=== PATIENT | female | born 1960 | race Caucasian/White ===

== ENCOUNTER 2018-01-24 01:42 | Observation (INO) | payer MEDICARE, OTHER ==
[~2018-01-24] VITALS: Ht 170.2 cm; Wt 87.8 kg
[~2018-01-24 01:42] MED LIST: BENTYL20 MG PO; BUSPIRONE HCL10 MG PO; BUSPIRONE HCL15 MG PO; CELEBREX200 MG PO; CITALOPRAM HBR10 MG PO; DIAZEPAM5 MG PO; GABAPENTIN400 MG PO; HYDROCHLOROTHIA25 MG PO; HYDROCODON-ACE1 EAC9 PO; LEFLUNOMIDE20 MG PO; LOSARTAN POTASS50 MG PO; LOSARTAN-HCTZ1 EACH PO; MAXALT10 MG SL; MELATONIN10 M1 PO; MELOXICAM15 MG PO; NEXIUM40 MG PO; ONDANSETRON HCL4 MG PO; OXYCODONE HCL15 MG PO; PANTOPRAZOLE SO40 MG PO; PREDNISONE5 MG PO; PREVALITE PACKET4 GM; PROMETHAZINE12.5 M1 PO; SAVELLA100 MG PO; SAVELLA50 MG PO; SERTRALINE HCL100 MG PO; SUCRALFATE1 G/10 ML PO; TRAMADOL HCL E200 MG PO; VICODIN 5-5001 EACH PO; Z EFFEXOR; Z.0.ULTRAM 50MG50 MG; Z.0.VALIUM2 MG; [UNRECOGNIZED DRUG - OTHER]
[2018-01-24] MEDS ORDERED: ONDANSETRON HCL INJ 2 MG/ML VIAL IV STA (02:21)
[2018-01-24] MEDS ORDERED: NITROGLYCERIN 2% OINT 1 GM PKT TOP ONE (02:30)
[2018-01-24] MEDS ORDERED: MORPHINE SULFATE 5 MG/ML VIAL IV ONE (02:30)
[2018-01-24] MEDS ORDERED: ASPIRIN 81 MG CHEW TAB PO ONE (02:30)
--- NOTE | 2018-01-24 02:40 | Diagnostic Imaging Report ---
EXAMINATION: CXR 2 VIEW - HOPD INDICATION: Mid chest pain COMPARISON: Chest radiograph 10/05/2016 FINDINGS: PA and lateral views TUBES and LINES: None. LUNGS: Lungs are well inflated. Lungs are clear. There is no evidence of pneumonia or pulmonary edema. PLEURA: No pleural effusion or pneumothorax. HEART AND MEDIASTINUM: The cardiomediastinal silhouette is unremarkable. BONES AND SOFT TISSUES: No acute osseous lesion. Soft tissues are unremarkable. UPPER ABDOMEN: No free air under the diaphragm. IMPRESSION: No acute thoracic abnormality. Signed by: DR. Jesus Manuel Fishman MD on 01/24/2018 2:36 AM
--- OUTSIDE RECORDS SUMMARY | 2018-01-24 03:19 | XMS REPORT ---
Author [facility] Address Unknown Phone Unavailable Care Team Providers Care Detacher Name Role Phone Valerie IBARRA Unavailable Unavailable Problems This patient has no known problems. Allergies, Adverse Reactions, Alerts This patient has no known allergies or adverse reactions. Medications This patient has no known medications. Results Test Description Test Time Test Comments Text Results Atomic Results Result Comments CXR 2 VIEW - HOPD 2018-01-24 02:34:00 [place] [address] Patient Name: TISH MARTE MR #: [id number] : 1960 Age/Sex: 57/F Req #: [id number] Adm Physician: Ordered by: SILVER IBARRA MD Report #: [id number] Location: [facility] Room/Bed: Procedure: [id number] HOPD/CXR 2 VIEW - HOPD Exam Date: 01/24/18 Exam Time: 0200 REPORT STATUS: Signed EXAMINATION: CXR 2 VIEW - HOPD INDICATION: Mid chest pain COMPARISON: Chest radiograph 10/05/2016 FINDINGS: PA and lateral views TUBES and LINES: None. LUNGS: Lungs are well inflated. Lungs are clear. There is no evidence of pneumonia or pulmonary edema. PLEURA: No pleural effusion or pneumothorax. HEART AND MEDIASTINUM: The cardiomediastinal silhouette is unremarkable. BONES AND SOFT TISSUES: No acute osseous lesion. Soft tissues are unremarkable. UPPER ABDOMEN: No free air under the diaphragm. IMPRESSION: No acute thoracic abnormality. Signed by: DR. Jesus Manuel Harper MD on 01/24/2018 2:36 AM Dictated By: JESUS MANUEL HARPER MD 5 Transcribed By: DELL on 01/24/18235 COPY TO: SILVER IBARRA MD
[2018-01-24] MEDS ORDERED: MORPHINE SULFATE INJ 4 MG/ML INJ IV PRN (03:30)
[2018-01-24 04:16] VITALS: BP 110/61
[2018-01-24] MEDS: MORPHINE SULFATE 2 MG/ML SYR IV PRN (04:31)
[2018-01-24] MEDS: NITROGLYCERIN 2% OINT 1 GM PKT TOP SCH ×3 (06:11→17:00)
[2018-01-24 07:47] VITALS: BP 99/57
[2018-01-24 07:48] VITALS: BP 99/57
[2018-01-24] MEDS ORDERED: DIAZEPAM 5 MG TAB PO PRN (08:00)
[2018-01-24] MEDS ORDERED: DICYCLOMINE HCL 20 MG TAB PO PRN (08:00)
[2018-01-24] MEDS ORDERED: PANTOPRAZOLE 40 MG 10ML VIAL IV SCH (09:00)
[2018-01-24] MEDS: BUSPIRONE HCL 10 MG TABLET PO SCH ×2 (09:38→17:00)
[2018-01-24] MEDS: ASPIRIN 81 MG ENTERIC COATED PO SCH (09:38)
[2018-01-24] MEDS: SERTRALINE HCL 100 MG TAB PO SCH ×2 (09:38→17:00)
[2018-01-24] MEDS: SUCRALFATE 1 GM TAB PO SCH ×4 (09:38→20:54)
[2018-01-24] MEDS: KETOROLAC TROMETHAMINE 30 MG/ML VIAL IV PRN ×3 (09:38→17:50)
[2018-01-24] MEDS: PANTOPRAZOL 40MG/SOD CHL 0.9% 50 ML IV SCH ×3 (09:47→20:54)
[2018-01-24 10:43] LABS: CREATINE KINASE 96 IU/L (29-168)
[2018-01-24 11:29] VITALS: BP 96/49
--- NOTE | 2018-01-24 11:40 | History and Physical ---
HISTORY OF PRESENTING ILLNESS: This is a 57-year-old lady with a history of fibromyalgia, history of depression, history of colitis, IBS, and rheumatoid arthritis was in usual state of health until one day prior to admission the patient had chest pain which is tight in nature and is more lying down, not exertional and the patient came into the emergency room and was admitted for rule out acute coronary syndrome. PAST MEDICAL HISTORY: History of fibromyalgia, history of hypertension, history of chronic pain syndrome, history of depression, history of reflux esophagitis, and history of irritable bowel syndrome and colitis. MEDICATIONS: Patient's medicine she takes at home are buspirone 20 mg twice a day, daily, diazepam 10 mg b.i.d., dicyclomine 20 mg t.i.d., gabapentin 400 mg 3 times a day, leflunomide 20 mg daily, losartan and hydrochlorothiazide 1 tab daily, oxycodone 15 mg q.6 hours p.r.n., pantoprazole 40 mg daily, promethazine 12.5 mg, rizatriptan 10 mg for migraines, sertraline 100 mg twice a day and Carafate 1 g q a.c. and h.s. also daily. PAST SURGICAL HISTORY: Includes history of appendectomy, history of cholecystectomy, hysterectomy, and low back surgery. FAMILY HISTORY: Father dying with the MVA and otherwise family history is unknown. REVIEW OF SYSTEMS: Positive for chest pain. No shortness of breath. Positive for nausea. No vomiting. No diarrhea. No constipation. No rectal bleeding. No hematochezia. No hematemesis. PHYSICAL EXAMINATION VITAL SIGNS: Temperature is normal, blood pressure is 153/72, pulse of 68, and respirations of 16. HEENT: Normocephalic, atraumatic. Pupils are reactive to light and accommodation. CVS: S1 and S2 normal. Regular rate and rhythm. ABDOMEN: Tender in the epigastrium. EXTREMITIES: No, clubbing, no cyanosis, and no edema. LABORATORY VALUES: White count 10.6 with a left shift otherwise normal. Chemistry is normal. ASSESSMENT AND PLAN: Gastritis. We will continue to monitor the patient and consult a cardiology opinion. Echocardiogram was done and we will start the patient on some IV Protonix 40 mg right now. Hold back on the pain medications. We will give some Toradol 60 mg in view of both gastritis and also her low blood pressure being here today. In home medicines, we are going to restrict her pain medicines right now and also blood pressure medicine will be on hold as well as her gastric medications. We are going to restart the Carafate and put her on IV Protonix. Further recommendation per clinical course. We will continue to monitor the patient along with the cardiology and possible discharge when all tests come back normal. Job#: [id number] MALU
[2018-01-24] MEDS: LOSARTAN POTASSIUM 25 MG TAB PO SCH (14:40)
[2018-01-24 15:42] VITALS: BP 97/51
--- NOTE | 2018-01-24 16:25 | Consultation ---
DATE OF CONSULTATION: January 24, 2018 REASON FOR CONSULTATION: Chest pain. HISTORY OF PRESENT ILLNESS: This is a 57-year-old female with history of fibromyalgia, depression, colitis, IBS, rheumatoid arthritis, GERD, degenerative joint disease. The patient presents to outline ER with complaints of chest pain, shortness of breath, was transferred to [facility] for further evaluation. Cardiology was consulted to evaluate patient. Patient is seen in room. Reports he has been having chest pain since yesterday afternoon, pressure tightness in the substernal regions radiates to her jaw, worse with lying position. Also reports for the past several days has been progressively getting short of breath where she cannot go to restroom because she is very short of breath, tired, and fatigued. Currently, she stats chest pain has resolved, feels slightly better after Toradol. Enzymes negative x2 thus far. PAST MEDICAL HISTORY: Fibromyalgia, depression, colitis, IBS, rheumatoid arthritis, GERD, degenerative joint disease. FAMILY HISTORY: Unknown. SOCIAL HISTORY: She is , disabled. She denies any alcohol use. She reports she smokes about a pack a week for at least 20 years intermittently. PAST SURGICAL HISTORY: Appendectomy, cholecystectomy, hysterectomy. HOME MEDICATIONS 1. BuSpar 20 mg once a day. 2. Prevalite package 4 gram once day. 3. Diazepam 10 mg b.i.d. p.r.n. 4. Bentyl 20 mg p.o. t.i.d. p.r.n. 5. Gabapentin 400 mg t.i.d. 6. Losartan/hydrochlorothiazide 50/12.5 once a day. 7. Protonix 40 mg once a day. 8. Phenergan 12.5 q.6 p.r.n. 9. Sertraline 100 mg b.i.d. 10. Carafate at 1 gram p.o with meals. ALLERGIES: NO KNOWN ALLERGIES. REVIEW OF SYSTEMS GENERAL: Denies any weight changes. Positive for fatigue and weakness. Denies any fevers, chills, night sweats. SKIN: No rashes. No sores. HEENT: Denies any headaches, any vision changes. Positive for nausea. Denies any vomiting. Denies any blurred vision, double vision, sneezing, itching, allergies, epistaxis. Denies any sore throat, hoarseness, swollen neck. CARDIAC: Positive for chest pain. Positive for dyspnea on exertion. Denies any orthopnea or any PND and lower extremity edema. RESPIRATORY: Positive for shortness of breath. No wheezing. No coughing. No hemoptysis. GI: Good appetite. Positive for dysphagia. Denies any constipation. Positive for diarrhea for the past 2 weeks and was supposed to see GI physician. URINARY: Positive for frequency and urgency. Reports history of hematuria in the past month, was treated for UTI. VASCULAR: Denies any lower extremity edema or claudication. MUSCULOSKELETAL: Positive for muscle weakness. Positive for joint pains, back pains. NEUROLOGIC: Positive for lower extremity tingling. Denies any paralysis, fainting, blackouts seizures. HEMATOLOGY: Denies any anemia or bruising. ENDOCRINE: Denies any heat or cold intolerance, polyuria, polydipsia, polyphagia. PHYSICAL EXAM VITAL SIGNS: Height 6 feet 7 inches, weight 225 pounds, BMI 35.7. Vital signs, current temperature 98.4, pulse 67, respiratory rate 19, blood pressure 99/57, pulse ox 96% on 2 liters nasal cannula. GENERAL: She appears stated age, reliable informant, apparently no acute distress. SKIN: No rashes or bruises. HEENT: Normocephalic. Pupils are equal and reactive. Extraocular muscle intact. Trachea midline. Oral mucosa pink. No JVD. No thyromegaly. HEART: Regular rate and rhythm. No murmurs, no clicks. LUNGS: Bilateral breath sounds clear to auscultation. ABDOMEN: Soft, nontender, nondistended. No organomegaly noted. MUSCULOSKELETAL: Muscle strength equal bilaterally and no lower extremity swelling. Has +2 bilateral radial pulses, +1 DP and PT and bilateral lower extremity pulses. NEUROLOGIC: Cranial nerves II through XII seems intact. LABS: Sodium 143, potassium 4.1, chloride 103, glucose 125, BUN 12, creatinine 1.1. Initial first troponin less than 0.05 and repeat less than 0.001. White count 10, hemoglobin 14, hematocrit 46, platelets 225. X-ray showing no acute abnormalities. EKG, normal sinus rhythm. ASSESSMENT 1. Chest pain. 2. Hypertension. 3. Tobacco use. 4. Gastroesophageal reflux disease. 5. Fibromyalgia. 6. Degenerative joint disease. PLAN 1. Patient presents with mixed chest pain symptoms. Will cycle enzymes and plan for stress test in the morning. 2. Echo has been ordered or has been reviewed by cardiology attending. 3. Will check lipid panel and TSH. 4. Continue tele monitor for now. 5. Further recommendations as clinical course. Thank you very much for this consult. Seen and examined Agree with note Will schedule stress test Dictated by: Carlos Thomas NP Job#: [id number] MALU SHANNON
[2018-01-24 18:45] LABS: CREATINE KINASE 85 IU/L (29-168)
[2018-01-24 20:00] VITALS: BP 107/55
[2018-01-25] VITALS (7 sets, daily range): BP systolic 105–132; BP diastolic 56–62
[2018-01-25] MEDS: NITROGLYCERIN 2% OINT 1 GM PKT TOP SCH ×2 (00:21→06:00)
[2018-01-25] MEDS: PANTOPRAZOL 40MG/SOD CHL 0.9% 50 ML IV SCH ×5 (02:11→23:38)
[2018-01-25] MEDS: ONDANSETRON HCL INJ 2 MG/ML VIAL IV PRN ×2 (02:39→07:55)
[2018-01-25] MEDS: MORPHINE SULFATE 2 MG/ML SYR IV PRN ×6 (02:39→23:56)
[2018-01-25 05:09] LABS: BASOPHILS # (AUTO) 0.1 (0.0-0.1); BASOPHILS % 0.5 % (0.0-1.0); EOSINOPHILS # (AUTO) 0.3 (0.0-0.4); EOSINOPHILS % 2.9 % (0.0-6.0); HEMOGLOBIN 12.8 g/dL (12.0-16.0); LYMPHOCYTES # (AUTO) 2.6 (1.0-3.2); LYMPHOCYTES % 25.9 % (18.0-39.1); MEAN CORPUSCULAR HEMOGLOBIN 30.3 pg (28-32); MEAN CORPUSCULAR HGB CONC 32.8 g/dL (31-35); MEAN CORPUSCULAR VOLUME 92.2 fL (81-99); MONOCYTES # (AUTO) 0.6 (0.2-0.8); MONOCYTES % 5.6 % (4.4-11.3); NEUTROPHILS # (AUTO) 6.5 (2.1-6.9); NEUTROPHILS % 64.6 % (38.7-80.0); PLATELET COUNT 210 x10e3/uL (140-360); RED BLOOD COUNT 4.23 x10e6/uL (3.6-5.1); RED CELL DISTRIBUTION WIDTH 14.1 % (11.7-14.4)
[2018-01-25 05:39] LABS: ANION GAP 11.2 mmol/L (8-16); CALCIUM 8.8 mg/dL (8.4-10.2); CREATININE, SERUM 0.95 mg/dL (0.57-1.11); POTASSIUM 4.2 mmol/L (3.5-5.1)
[2018-01-25] MEDS: KETOROLAC TROMETHAMINE 30 MG/ML VIAL IV PRN ×2 (05:51→14:00)
[2018-01-25 06:06] LABS: CHOL/HDL RATIO 5.8 (3.0-3.6)
--- NOTE | 2018-01-25 07:13 | Progress Note ---
DATE: Patient is here for chest pain. Patient still complains of chest pain, evening. Has been on Protonix drip for possible reflux esophagitis and gastritis. Patient's pain was better. Cardiology has seen the patient. She is scheduled for a stress test today. Echocardiogram preliminary shows EF of 45%-50%. OBJECTIVE/EXAMINATION VITAL SIGNS: Patient's temperature is 97.2, blood pressure is 127/59, pulse is 72, respirations of 18, pulse oximeter of 94%. HEENT: Normocephalic, atraumatic. Pupils reactive to light and accommodation. CVS: S1, S2 normal. Regular rate, rhythm. ABDOMEN: Tender in the epigastric area. No clubbing, no cyanosis, and no edema. LABORATORY VALUES: The patient's white count is 10.11. Chemistry: Sodium of 135, BUN and creatinine 11.2 and 22, and glucose is 23. Patient's LDL is 139, total cholesterol of 238, and triglycerides of 291. ASSESSMENT 1. Chest pain. Rule out acute coronary syndrome. 2. Reflux esophagitis and gastritis. Continue Protonix. 3. Irritable bowel syndrome. 4. Chronic pain syndrome. Continue on pain medicine. Once the stress test is normal, the patient can be going home. Further recommendation per clinical course, and I will follow up with cardiology. Job#: [id number] CQ
[2018-01-25] MEDS: SUCRALFATE 1 GM TAB PO SCH ×4 (07:50→21:04)
[2018-01-25] MEDS: LOSARTAN POTASSIUM 25 MG TAB PO SCH (09:00)
[2018-01-25] MEDS: HYDROCHLOROTHIAZIDE 25 MG TAB PO SCH (09:00)
[2018-01-25] MEDS ORDERED: REGADENOSON 0.4 MG/5 ML SYR IV ONE (10:27)
[2018-01-25] MEDS: SERTRALINE HCL 100 MG TAB PO SCH ×2 (12:22→16:30)
[2018-01-25] MEDS: BUSPIRONE HCL 10 MG TABLET PO SCH ×2 (12:22→16:30)
[2018-01-25] MEDS: ASPIRIN 81 MG ENTERIC COATED PO SCH (12:22)
[2018-01-26] VITALS: BP 125/62
[2018-01-26] MEDS: MORPHINE SULFATE 2 MG/ML SYR IV PRN ×8 (02:58→23:14)
[2018-01-26 04:00] VITALS: BP 124/70
[2018-01-26] MEDS: PANTOPRAZOL 40MG/SOD CHL 0.9% 50 ML IV SCH ×5 (05:17→22:37)
--- NOTE | 2018-01-26 07:18 | Progress Note ---
DATE: The patient is admitted for chest pain. Currently, she is chest pain free. However, the pain she has is epigastric pain, especially after eating. The patient had food after the stress test, and the patient's pain was 8/10 in intensity, and was more with eating. The patient was kept back for intractable pain. Was started on pain medication, and will continue with that. Also, consult with Dr. Calixto Chamorro was done for upper GI and EGD evaluation. The patient is to have EGD today. Otherwise, stress test was negative. MEDICATIONS: As per medicine sheet. She is currently on pantoprazole drip. PHYSICAL EXAMINATION GENERAL: Alert and oriented times 3. LUNGS: Clear to auscultation. HEENT: Normocephalic and atraumatic. Anicteric. NECK: No JVD present. CV: S1 and S2 normal. ABDOMEN: Tender in the epigastrium. EXTREMITIES: No clubbing. No cyanosis. No edema. NEUROLOGICAL: Normal and stable. The patient's BUN and creatinine yesterday was 22 and 0.95. Hemoglobin is stable at 12.9 and 39. Stress test negative. ASSESSMENT 1. Chest pain: Ruled out acute coronary syndrome. Negative stress test. 2. Epigastric pain, probably gastrointestinal related: Peptic ulcer disease and/or gastritis. PLAN: Continue with the IV Protonix. EGD is to be done by Dr. Chamorro today. Further recommendations per clinical course. The patient can go home if the EGD is negative, and can be sent home on Carafate. Job#: [id number] PAXTON
[2018-01-26] MEDS: SUCRALFATE 1 GM TAB PO SCH ×4 (07:30→20:11)
[2018-01-26 08:20] VITALS: BP 151/67
[2018-01-26] MEDS: HYDROCHLOROTHIAZIDE 25 MG TAB PO SCH (09:00)
[2018-01-26] MEDS: BUSPIRONE HCL 10 MG TABLET PO SCH ×2 (09:00→16:34)
[2018-01-26] MEDS: SERTRALINE HCL 100 MG TAB PO SCH ×2 (09:00→16:34)
[2018-01-26] MEDS: LOSARTAN POTASSIUM 25 MG TAB PO SCH (09:00)
[2018-01-26] MEDS: ASPIRIN 81 MG ENTERIC COATED PO SCH (09:00)
[2018-01-26 11:37] LABS: BASOPHILS # (AUTO) 0.1 (0.0-0.1); BASOPHILS % 0.6 % (0.0-1.0); EOSINOPHILS # (AUTO) 0.2 (0.0-0.4); EOSINOPHILS % 2.7 % (0.0-6.0); HEMATOCRIT 39.3 % (34.2-44.1); HEMOGLOBIN 13.2 g/dL (12.0-16.0); LYMPHOCYTES % 12.3 % (18.0-39.1); MEAN CORPUSCULAR HEMOGLOBIN 30.6 pg (28-32); MEAN CORPUSCULAR HGB CONC 33.6 g/dL (31-35); MEAN CORPUSCULAR VOLUME 91.2 fL (81-99); MONOCYTES # (AUTO) 0.4 (0.2-0.8); NEUTROPHILS # (AUTO) 6.2 (2.1-6.9); NEUTROPHILS % 79.1 % (38.7-80.0); PLATELET COUNT 217 x10e3/uL (140-360); RED BLOOD COUNT 4.31 x10e6/uL (3.6-5.1); RED CELL DISTRIBUTION WIDTH 13.7 % (11.7-14.4)
[2018-01-26 11:57] LABS: ANION GAP 13.2 mmol/L (8-16); BLOOD UREA NITROGEN 16 mg/dL (7-26); BUN/CREATININE RATIO 20 (6-25); CALCIUM 8.3 mg/dL (8.4-10.2); CARBON DIOXIDE 26 mmol/L (22-29); CHLORIDE 102 mmol/L (98-107); CREATININE, SERUM 0.82 mg/dL (0.57-1.11); EST GLOMERULAR FILTRATION RATE > 60 ML/MIN (60-); GLUCOSE 101 mg/dL (74-118); POTASSIUM 4.2 mmol/L (3.5-5.1); SODIUM 137 mmol/L (136-145)
[2018-01-26 12:17] VITALS: BP 133/65
[2018-01-26] MEDS ORDERED: DONNATAL/LIDOCAINE/MAALOX 30 ML SUSP PO NR (15:00)
[2018-01-26] MEDS ORDERED: FENTANYL CITRATE/PF 100MCG/2 ML INJ ONE ×2 (15:17→18:20)
--- NOTE | 2018-01-26 15:50 | Operative Report ---
DATE OF PROCEDURE: January 24, 2018 REFERRING PHYSICIAN: Dr. Justin Art PROCEDURE PERFORMED: Esophagogastroduodenoscopy with esophageal dilatation and biopsies. INDICATIONS FOR EGD: Dysphagia, odynophagia. MEDICATION: Patient was done under MAC. Please see anesthesiologist's note. PROCEDURE: With the patient in the left lateral decubitus position, the flexible fiberoptic Olympus gastroscope was introduced into the esophagus under direct visualization without any difficulty. The distal esophageal mucosa was diffusely ulcerated. A mild stricture was noted at the GE junction that was dilated to size 48-Burkin[place] Moyer. The scope was then advanced with ease into the stomach. Mucosa overlying the antrum and the body revealed some patchy erythema and mild to moderate edema, and biopsies were obtained and sent to stain for H. pylori. Pylorus was of normal contour and shape. It was intubated with ease, and the scope was advanced all the way to the 2nd portion of the duodenum. The scope was then withdrawn slowly. Mucosa overlying the proximal 2nd portion appeared to be within normal limits. Some patchy areas of erythema were noted in the duodenal bulb. The scope was then withdrawn back into the stomach and retroflexed. Mucosa overlying the fundus and cardia appeared to be within normal limits. The scope was then straightened out. It was subsequently withdrawn. Patient tolerated the procedure well. IMPRESSION 1. Ulcerated distal esophagus. 2. Esophageal stricture at gastroesophageal junction dilated to size 48-Burkinan Moyer. 3. Small sliding hiatal hernia. 4. Gastritis, biopsied. Biopsies sent to stain for H. pylori. 5. Duodenitis, mild. PLAN: Follow up histology. Continue current therapy. Initiate full liquid diet. Job#: [id number] cc:JUSTIN ART MD
[2018-01-26 16:13] VITALS: BP 176/84
[2018-01-26] MEDS ORDERED: PROPOFOL IV EMULSION 10 MG/ML 20 ML VIAL ONE (17:50)
[2018-01-26] MEDS ORDERED: GLUCAGON FOR INJ 1 MG VIAL ONE (17:50)
[2018-01-26] MEDS ORDERED: MIDAZOLAM HCL 2 MG/2 ML VIAL ONE (18:20)
[2018-01-26 20:00] VITALS: BP 131/62
[2018-01-27] VITALS: BP 106/57
[2018-01-27] MEDS: MORPHINE SULFATE 2 MG/ML SYR IV PRN ×2 (02:42→05:49)
[2018-01-27] MEDS: PANTOPRAZOL 40MG/SOD CHL 0.9% 50 ML IV SCH (03:50)
[2018-01-27 04:00] VITALS: BP 122/68
--- NOTE | 2018-01-27 07:07 | Progress Note ---
DATE: This patient came in for chest pain. Stress test has been negative. Patient underwent an EGD yesterday and was found to have ulcer in the distal esophagus, and also, esophageal stricture at the GE junction. Also, the patient had a dilatation done for the stricture and also, additional findings of small hiatal hernia and gastritis and duodenitis. Biopsies were taken. Patient is currently pain free, feeling much better. PHYSICAL EXAMINATION VITALS: Temperature is 98.2, pulse was 73, blood pressure is 122/68, pulse oximetry 95%. HEENT: Normocephalic, atraumatic. Anicteric. Pupils react to light and accommodation. LUNGS: Clear to auscultation. CARDIAC: S1 and S2 normal. Regular rhythm. ABDOMEN: Slight tenderness in the epigastric area. EXTREMITIES: No clubbing, no cyanosis, no edema. LABORATORY VALUES: No new values. BUN and creatinine were normal yesterday and H and H was normal yesterday. ASSESSMENT 1. Gastritis, probably from nonsteroidal anti-inflammatory drugs intake. Plan is to give Protonix 40 mg twice a day. Also, send her home on Carafate 1 g q.a.c. nightly. Restart all of her home medications. Nonsteroidal anti-inflammatory drugs to be avoided for chest pain. 2. Stress was negative. 3. History of rheumatoid arthritis. Continue on biologicals. Avoid nonsteroidal anti-inflammatory drugs again. 4. Hypertension. Continue on her hydrochlorothiazide. 5. For the depression, will continue sertraline and diazepam as needed. For further information, look in the chart, and patient will be discharged today. Will be seen by her primary care physician and also, by Dr. Chamorro as an outpatient basis. Again, bland diet and avoidance of NSAID has been advocated. Job#: [id number] CQ
[2018-01-27 07:28] VITALS: BP 122/68
[2018-01-27 07:48] VITALS: BP 125/69
== END 2018-01-27 08:59 | disposition home or self-care (01) ==
LOC: FSED 01:42 → ERHOLD 03:16 → IMCU 04:00
PROVIDERS: ADMIT Family Medicine; ATTEND Family Medicine
DX: K29.70 Gastritis, unspecified, without bleeding (principal); R07.89 Other chest pain; M79.7 Fibromyalgia; M06.9 Rheumatoid arthritis, unspecified; I10 Essential (primary) hypertension; M19.90 Unspecified osteoarthritis, unspecified site; Z72.0 Tobacco use; K22.2 Esophageal obstruction; K44.9 Diaphragmatic hernia without obstruction or gangrene; K29.80 Duodenitis without bleeding; K22.10 Ulcer of esophagus without bleeding; K50.90 Crohn's disease, unspecified, without complications; F41.9 Anxiety disorder, unspecified; F32.9 Major depressive disorder, single episode, unspecified; G89.4 Chronic pain syndrome; K58.9 Irritable bowel syndrome, unspecified; K21.0 Gastro-esophageal reflux disease with esophagitis; E78.5 Hyperlipidemia, unspecified
CPT/HCPCS: 36415 ×3; 43239; 43249; 71046; 78452; 80048 ×2; 80053; 80061; 81003; 82550; 82553; 84443; 84484; 85025 ×3; 88305; 88312; 93005; 93306; 99284; A9502; G0378 ×4; J1610; J1885 ×2; J2250; J2270 ×5; J2405 ×2; J2704; J2785; 43450

== ENCOUNTER 2018-04-19 14:29 | Observation (INO) | payer MEDICARE, OTHER ==
[~2018-04-19] VITALS: Ht 167.6 cm; Wt 87.5 kg
[~2018-04-19 14:29] MED LIST changes: -PREVALITE PACKET4 GM; +PREVALITE PACKET4 GM PO
[2018-04-19] MEDS ORDERED: DONNATAL/LIDOCAINE/MAALOX 30 ML SUSP PO NR (15:43)
[2018-04-19 17:17] LABS: BASOPHILS # (AUTO) 0.1 (0.0-0.1); BASOPHILS % 0.7 % (0.0-1.0); EOSINOPHILS # (AUTO) 0.3 (0.0-0.4); EOSINOPHILS % 4.7 % (0.0-6.0); HEMATOCRIT 40.8 % (34.2-44.1); HEMOGLOBIN 13.1 g/dL (12.0-16.0); LYMPHOCYTES # (AUTO) 3.1 (1.0-3.2); LYMPHOCYTES % 43.1 % (18.0-39.1); MEAN CORPUSCULAR HEMOGLOBIN 29.5 pg (28-32); MEAN CORPUSCULAR HGB CONC 32.1 g/dL (31-35); MEAN CORPUSCULAR VOLUME 91.9 fL (81-99); MONOCYTES # (AUTO) 0.6 (0.2-0.8); MONOCYTES % 8.1 % (4.4-11.3); NEUTROPHILS # (AUTO) 3.1 (2.1-6.9); NEUTROPHILS % 43.1 % (38.7-80.0); PLATELET COUNT 246 x10e3/uL (140-360); RED BLOOD COUNT 4.44 x10e6/uL (3.6-5.1); RED CELL DISTRIBUTION WIDTH 14.5 % (11.7-14.4)
[2018-04-19 17:25] LABS: INR 0.81
[2018-04-19 17:26] LABS: PARTIAL THROMBOPLASTIN TIME 31.2 seconds (23.8-35.5)
[2018-04-19 17:33] LABS: BILIRUBIN,URINE NEGATIVE (NEGATIVE); CLARITY,URINE CLEAR (CLEAR); COLOR,URINE YELLOW (YELLOW); KETONES,URINE NEGATIVE (NEGATIVE); LEUKOCYTE ESTERASE ,URINE NEGATIVE (NEGATIVE); NITRITE,URINE NEGATIVE (NEGATIVE); PROTEIN,URINE DIPSTICK NEGATIVE (NEGATIVE); URINE UROBILINOGEN 0.2 mg/dL (0.2 - 1)
[2018-04-19 17:33] LABS: ALANINE AMINOTRANSFERASE 17 IU/L (0-55); ALBUMIN 3.9 g/dL (3.5-5.0); ALBUMIN/GLOBULIN RATIO 1.6 (0.8-2.0); ALKALINE PHOSPHATASE 80 IU/L (40-150); AMYLASE 28 U/L (25-125); ANION GAP 13.7 mmol/L (8-16); BLOOD UREA NITROGEN 19 mg/dL (7-26); BUN/CREATININE RATIO 19 (6-25); CALCIUM 9.4 mg/dL (8.4-10.2); CARBON DIOXIDE 27 mmol/L (22-29); CHLORIDE 100 mmol/L (98-107); CREATINE KINASE 158 IU/L (29-168); CREATININE, SERUM 1.01 mg/dL (0.57-1.11); EST GLOMERULAR FILTRATION RATE 56 ML/MIN (60-); GLUCOSE 85 mg/dL (74-118); LIPASE 14 U/L (8-78); POTASSIUM 3.7 mmol/L (3.5-5.1); SODIUM 137 mmol/L (136-145)
[2018-04-19 17:40] LABS: BACTERIA,URINE FEW /HPF; EPITHELIAL CELLS,URINE FEW /LPF; WBC,URINE (MAN) 0-5 /HPF (0-5)
--- NOTE | 2018-04-19 19:08 | Diagnostic Imaging Report ---
EXAMINATION: CHEST SINGLE (NOT PORTABLE) INDICATION: Chest pain ^chest pain ^[id number] ^1855 ^Y COMPARISON: 02/27/2011 FINDINGS: TUBES and LINES: None. LUNGS: Lungs are well inflated. Perihilar peribronchial hazy opacity could be due to bronchitis. There is no evidence of pneumonia or pulmonary edema. PLEURA: No pleural effusion or pneumothorax. HEART AND MEDIASTINUM: The cardiomediastinal silhouette is unremarkable. BONES AND SOFT TISSUES: No acute osseous lesion. Soft tissues are unremarkable. UPPER ABDOMEN: No free air under the diaphragm. IMPRESSION: Perihilar peribronchial hazy opacity could be due to bronchitis. Signed by: Dr. Tomas Chi M.D. on 04/19/2018 7:04 PM
[2018-04-19] MEDS ORDERED: SUCRALFATE1 GM PO (19:57)
[2018-04-19] MEDS ORDERED: PANTOPRAZOLE SO40 MG PO (19:59)
[2018-04-19] MEDS ORDERED: xeljanz PO (20:01)
[2018-04-19] MEDS: SODIUM CHLORIDE 0.9% 1000ML 1,000 ML IV SCH (20:43)
[2018-04-19] MEDS: MORPHINE SULFATE INJ 4 MG/ML INJ 1ML IV PRN (20:43)
[2018-04-19] MEDS: ONDANSETRON HCL INJ 2MG/ML 2ML 2 MG/ML VIAL IV PRN (20:43)
--- NOTE | 2018-04-20 01:00 | NUR ---
PT O2 SAT 93% ON RA. PT ENCOURAGED TO DEEP BREATHE. PT REQUESTING MORPHINE FOR PAIN. PAIN RATED 7/10. PT PLACED ON O2 2L NC PER O2 PROTOCOL. O2 SAT INCREASED TO 98-99%. MEDICATED PER ORDERS AT THIS TIME.
[2018-04-20] MEDS: MORPHINE SULFATE INJ 4 MG/ML INJ 1ML IV PRN ×5 (01:01→23:39)
[2018-04-20] MEDS: ONDANSETRON HCL INJ 2MG/ML 2ML 2 MG/ML VIAL IV PRN ×4 (01:01→23:39)
[2018-04-20] MEDS: SODIUM CHLORIDE 0.9% 1000ML 1,000 ML IV SCH ×2 (04:26→17:19)
[2018-04-20 05:46] LABS: ANION GAP 10.5 mmol/L (8-16); BLOOD UREA NITROGEN 12 mg/dL (7-26); BUN/CREATININE RATIO 16 (6-25); CARBON DIOXIDE 22 mmol/L (22-29); CHLORIDE 111 mmol/L (98-107); CREATININE, SERUM 0.73 mg/dL (0.57-1.11); EST GLOMERULAR FILTRATION RATE > 60 ML/MIN (60-); GLUCOSE 78 mg/dL (74-118); POTASSIUM 3.5 mmol/L (3.5-5.1); SODIUM 140 mmol/L (136-145)
[2018-04-20 05:52] LABS: CALCIUM 7.2 mg/dL (8.4-10.2)
[2018-04-20 06:25] LABS: BASOPHILS # (AUTO) 0.1 (0.0-0.1); EOSINOPHILS # (AUTO) 0.3 (0.0-0.4); EOSINOPHILS % 4.9 % (0.0-6.0); HEMATOCRIT 39.3 % (34.2-44.1); HEMOGLOBIN 12.2 g/dL (12.0-16.0); LYMPHOCYTES # (AUTO) 2.1 (1.0-3.2); LYMPHOCYTES % 39.7 % (18.0-39.1); MEAN CORPUSCULAR HEMOGLOBIN 29.7 pg (28-32); MEAN CORPUSCULAR VOLUME 95.6 fL (81-99); MONOCYTES # (AUTO) 0.5 (0.2-0.8); MONOCYTES % 8.6 % (4.4-11.3); NEUTROPHILS # (AUTO) 2.4 (2.1-6.9); NEUTROPHILS % 45.6 % (38.7-80.0); PLATELET COUNT 171 x10e3/uL (140-360); RED BLOOD COUNT 4.11 x10e6/uL (3.6-5.1); RED CELL DISTRIBUTION WIDTH 14.6 % (11.7-14.4)
--- NOTE | 2018-04-20 06:50 | NUR ---
RECEIVED REPORT FROM KADEN BRASHER.
--- NOTE | 2018-04-20 09:00 | NUR ---
Pt ambulatory to the RR. No distress is noted.
--- NOTE | 2018-04-20 12:00 | NUR ---
Ambulatory to RR. No distress.
--- NOTE | 2018-04-20 16:36 | Operative Report ---
DATE OF PROCEDURE: April 20, 2018 REFERRING PHYSICIAN: Dr. Roberto Marsh. PROCEDURE PERFORMED: Esophagogastroduodenoscopy with biopsy and esophageal dilatation. INDICATIONS FOR ESOPHAGOGASTRODUODENOSCOPY: Dysphagia, nausea and vomiting. MEDICATION: Patient was done under MAC. Please see anesthesiologist's note. PROCEDURE: With the patient in the left lateral decubitus position, the flexible fiberoptic Olympus gastroscope was introduced into the esophagus under direct visualization without any difficulty. There was some patchy erythema noted in the distal esophagus. There was a mild stricture noted at the GE junction, and that was dilated to size 54-Hong Konger Moyer. The scope was then advanced with ease into the stomach. Mucosa overlying the antrum and the body revealed some diffuse erythema and low-grade edema, and biopsies were obtained and sent to stain for H. pylori. Pylorus appeared to be of normal contour and shape, was intubated with ease, and the scope was advanced all the way to the 2nd portion of the duodenum. The scope was then withdrawn slowly, and mucosa overlying the proximal descending and the sigmoid colon revealed some patchy areas of intense erythema. The scope was then withdrawn back into the stomach and retroflexed. Mucosa overlying the fundus and the cardia appeared to be within normal limits. The scope was then straightened out. It was subsequently withdrawn. Patient tolerated the procedure well. IMPRESSION: 1. Distal esophagitis. 2. Esophageal stricture at gastroesophageal junction dilated to size 54-H[place] Konger Moyer. 3. Gastritis biopsied. Biopsies sent to stain for H. pylori. 4. Duodenitis, mild. PLAN: Follow up histology. Continue current therapy. Initiate full liquid diet. Job#: [id number] cc:ROBERTO MARSH MD
[2018-04-20] MEDS ORDERED: SODIUM CHLORIDE 0.9% 1000ML 1,000 ML ONE (17:14)
[2018-04-20] MEDS ORDERED: EPHEDRINE SULFATE INJ 50 MG/10 ML SYR ONE (17:25)
[2018-04-20] MEDS ORDERED: PROPOFOL IV EMULSION 10 MG/ML 50 ML VIAL ONE (17:25)
[2018-04-20] MEDS ORDERED: GLYCOPYRROLATE INJ 1MG/ 5 ML SYR ONE (17:25)
[2018-04-20] MEDS ORDERED: FENTANYL CITRATE/PF 100MCG/2 ML INJ ONE ×2 (17:46→18:34)
[2018-04-20] MEDS ORDERED: MIDAZOLAM HCL 2 MG/2 ML VIAL ONE (18:34)
[2018-04-20] MEDS ORDERED: HYDROMORPHONE 2MG/ML 2 MG/ML ML ONE (18:47)
[2018-04-20] MEDS ORDERED: MORPHINE SULFATE INJ 4 MG/ML INJ 1ML ONE ×2 (19:22→20:17)
--- NOTE | 2018-04-20 22:01 | NUR ---
PT ARRIVED ON THE UNIT FROM VIA STRETCHER AT 2201. PT IS A&OX3. PT ON 2L OF O2. PT ORIENTED TO THE ROOM, BED IN LOWEST POSITION, LOCKED, BED ALARM ON, AND CALL LIGHT WITHIN REACH. ADMISSION AND HEAD TO TOE ASSESSMENT COMPLETE. WILL CONTINUE TO MONITOR.
[2018-04-20 22:02] VITALS: BP 121/57
--- NOTE | 2018-04-20 23:16 | NUR ---
PER DR Aretha BRAUN CHANGE PT DIET TO GI SOFT. WILL CONTINUE TO MONITOR.
[2018-04-21] VITALS (8 sets, daily range): BP systolic 97–121; BP diastolic 49–64
[2018-04-21] MEDS: SODIUM CHLORIDE 0.9% 1000ML 1,000 ML IV SCH ×3 (01:15→17:56)
[2018-04-21] MEDS: ONDANSETRON HCL INJ 2MG/ML 2ML 2 MG/ML VIAL IV PRN ×4 (03:56→17:04)
[2018-04-21] MEDS: MORPHINE SULFATE INJ 4 MG/ML INJ 1ML IV PRN ×4 (03:56→17:04)
--- NOTE | 2018-04-21 08:10 | NUR ---
Pt received resting in bed. Pt oriented to staff and surroundings. All meds given as ordered. Call durham within reach. Emotional support given. Will monitor
[2018-04-21] MEDS ORDERED: NORCO 7.5-3251 EACH PO (18:01)
--- NOTE | 2018-04-21 18:18 | NUR ---
Pt given discharge instructions regarding meds, diet, activities, and follow up with PCP & GI. Pt and verbalized understanding of teaching. Leaving floor via wheelchair to 's car
== END 2018-04-21 18:26 | disposition home or self-care (01) ==
LOC: ER 14:29 → PACU V 20:06 → UNDOADMOB 20:40 → ERHOLD 20:40 → OR 04-20 14:28 → MED/SURG3 04-20 22:10
PROVIDERS: ADMIT Internal Medicine; ATTEND Internal Medicine
DX: K22.2 Esophageal obstruction (principal); R07.89 Other chest pain; K30 Functional dyspepsia; K20.9 Esophagitis, unspecified; K29.70 Gastritis, unspecified, without bleeding; K29.80 Duodenitis without bleeding; F41.9 Anxiety disorder, unspecified; M79.7 Fibromyalgia; I10 Essential (primary) hypertension; M06.9 Rheumatoid arthritis, unspecified; I25.10 Atherosclerotic heart disease of native coronary artery without angina pectoris
CPT/HCPCS: 36415 ×2; 43239; 43450; 71045; 80048; 80053; 81001; 82150; 82550; 82553; 83690; 84484; 85025 ×2; 85610; 85730; 88305; 88312; 93005; 96374; 99284; G0378 ×3; J1170; J2250; J2270 ×3; J2405 ×3; J2704; J3490; J7030 ×3; 43235

== ENCOUNTER 2018-04-28 17:47 | Emergency (ER) | payer MEDICARE, OTHER ==
[~2018-04-28] VITALS: Ht 167.6 cm; Wt 81.6 kg
[~2018-04-28 17:47] MED LIST changes: +NORCO 7.5-3251 EACH PO; +SUCRALFATE1 GM PO; +xeljanz PO
[2018-04-28] MEDS ORDERED: MORPHINE SULFATE 2 MG/ML SYR 1ML IV STA (18:32)
[2018-04-28] MEDS ORDERED: ONDANSETRON HCL INJ 2MG/ML 2ML 2 MG/ML VIAL IV STA (18:32)
[2018-04-28] MEDS ORDERED: IOPAMIDOL 300MG/ML 100 ML INFUS..BTL IV ONE (19:45)
--- NOTE | 2018-04-28 19:52 | Diagnostic Imaging Report ---
EXAM: CT CHEST WITH CONTRAST-HOPD DATE: 04/28/2018 12:00 AM INDICATION: Vomiting, chest pain COMPARISON: CT abdomen 09/30/2016 TECHNIQUE: Multidetector CT scanning of the chest was performed. Coronal and sagittal multiplanar reformations were obtained. CT low dose techniques were utilized, as applicable. IV Contrast: 100 ml Isovue 370/300 FINDINGS: LUNGS AND PLEURA: Minimal paraseptal emphysema. Nonspecific 3 mm right lung nodule on image 57. No consolidation or edema. No effusions or pneumothorax. HEART, MEDIASTINUM, VESSELS: Borderline cardiomegaly. Incidental right pericardial cyst . No adenopathy. The aorta and main pulmonary artery measure 3.3 and 2.6 cm respectively. No evidence of acute pulmonary artery embolism. UPPER ABDOMEN: Mild diffuse lower esophageal wall thickening. Innumerable low-density lesions again seen throughout the liver, likely cysts. MUSCULOSKELETAL: Likely healing upper sternal fracture. No hematoma. IMPRESSION: 1. Lower esophageal wall thickening which can be seen with esophagitis. Otherwise no acute abnormality. 2. Healing upper sternal fracture. Signed by: Dr Alexandra Dan MD on 04/28/2018 7:49 PM
[2018-04-28 20:07] VITALS: BP 138/72
== END 2018-04-28 20:08 | disposition home or self-care (01) ==
LOC: FSED 17:47
DX: R07.89 Other chest pain (principal); K21.0 Gastro-esophageal reflux disease with esophagitis; I10 Essential (primary) hypertension; D64.9 Anemia, unspecified; M06.9 Rheumatoid arthritis, unspecified; I25.2 Old myocardial infarction
CPT/HCPCS: 71260; 99283; J2270; J2405; Q9967

== ENCOUNTER → 2018-06-04 | Outpatient (CLI) | payer MEDICARE ==
--- NOTE | 2018-06-04 15:07 | Diagnostic Imaging Report ---
MODIFIED BARIUM SWALLOW Reason for examination: Dysphagia Comparison: None DISCUSSION: This examination was conducted in conjunction with speech pathologist. Patient was given, by mouth, numerous consistencies of barium. Fluoroscopy was obtained. Fluoro Time: 0.7 minutes DAP: 11.23 mGy*cm IMPRESSION: No evidence of aspiration or penetration. Functional oropharyngeal swallow. Gastroesophageal reflux and increased esophageal pain during swallowing. Please see speech pathology report for detailed description and recommendations. Signed by: Dr. Tomas Chi M.D. on 06/04/2018 3:03 PM
== END ==
LOC: DX 10:45
PROVIDERS: ATTEND Internal Medicine Gastroenterology
DX: R13.14 Dysphagia, pharyngoesophageal phase (principal)
CPT/HCPCS: 74230

== ENCOUNTER 2018-07-10 12:12 | Emergency (ER) | payer MEDICARE ==
[~2018-07-10] VITALS: Ht 167.6 cm; Wt 79.4 kg
[2018-07-10] MEDS ORDERED: DIATRIZOATE MEGL/DIATRIZOA SOD 30 ML BTL PO ONE (13:05)
[2018-07-10] MEDS: SODIUM CHLORIDE 0.9% 1000ML 1,000 ML IV STA (13:20)
[2018-07-10] MEDS: ONDANSETRON HCL INJ 2MG/ML 2ML 2 MG/ML VIAL IV ONE (13:25)
[2018-07-10] MEDS: DICYCLOMINE HCL 20 MG/2 ML VIAL IM ONE (13:28)
[2018-07-10 13:35] LABS: BASOPHILS # (AUTO) 0.1 (0.0-0.1); BASOPHILS % 0.3 % (0.0-1.0); EOSINOPHILS % 0.1 % (0.0-6.0); HEMATOCRIT 42.9 % (34.2-44.1); HEMOGLOBIN 14.1 g/dL (12.0-16.0); LYMPHOCYTES % 7.2 % (18.0-39.1); MEAN CORPUSCULAR HEMOGLOBIN 29.7 pg (28-32); MEAN CORPUSCULAR HGB CONC 32.9 g/dL (31-35); MEAN CORPUSCULAR VOLUME 90.5 fL (81-99); MONOCYTES # (AUTO) 0.6 (0.2-0.8); MONOCYTES % 4.3 % (4.4-11.3); NEUTROPHILS # (AUTO) 12.7 (2.1-6.9); NEUTROPHILS % 87.4 % (38.7-80.0); PLATELET COUNT 184 x10e3/uL (140-360); RED BLOOD COUNT 4.74 x10e6/uL (3.6-5.1); RED CELL DISTRIBUTION WIDTH 14.3 % (11.7-14.4)
[2018-07-10 14:05] LABS: ALBUMIN 3.7 g/dL (3.5-5.0); ANION GAP 17.4 mmol/L (8-16); CALCIUM 9.1 mg/dL (8.4-10.2); CREATININE, SERUM 1.6 mg/dL (0.57-1.11); POTASSIUM 3.4 mmol/L (3.5-5.1)
[2018-07-10 15:40] LABS: BACTERIA,URINE MANY /HPF; BILIRUBIN,URINE NEGATIVE (NEGATIVE); CLARITY,URINE CLOUDY (CLEAR); COLOR,URINE YELLOW (YELLOW); EPITHELIAL CELLS,URINE FEW /LPF; KETONES,URINE NEGATIVE (NEGATIVE); LEUKOCYTE ESTERASE ,URINE TRACE (NEGATIVE); NITRITE,URINE NEGATIVE (NEGATIVE); PROTEIN,URINE DIPSTICK TRACE (NEGATIVE); URINE UROBILINOGEN 0.2 mg/dL (0.2 - 1)
[2018-07-10] MEDS ORDERED: POTASSIUM CHLORIDE 20 MEQ TAB CR PO ONE (16:00)
--- NOTE | 2018-07-10 16:03 | Diagnostic Imaging Report ---
EXAM: CT Abdomen and Pelvis WITHOUT contrast INDICATION: ^r/o divertic / sbo - hx chron's ^[id number] ^[id number] COMPARISON: CT chest 04/28/[address] abdomen and pelvis 10/05/2016 TECHNIQUE: Abdomen and pelvis were scanned utilizing a multidetector helical scanner from the lung base to the pubic symphysis without administration of IV contrast. Absence of intravenous contrast decreases sensitivity for detection of focal lesions and vascular pathology. Coronal and sagittal reformations were obtained. Routine protocol was performed. IV CONTRAST: None. ORAL CONTRAST: None RADIATION DOSE: Total DLP: 560.2 mGy*cm Estimated effective dose: (DLP x 0.015 x size factor) mSv COMPLICATIONS: None FINDINGS: LINES and TUBES: None. LOWER THORAX: Lung bases are clear. Persistent circumferential wall thickening of the distal esophagus with associated small hiatal hernia. HEPATOBILIARY: Mild hepatomegaly. The liver measures 17.6 cm in length in the craniocaudal dimension. Mild diffuse low-attenuation of the liver parenchyma may reflect early hepatic steatosis. Stable low-attenuation a few hepatic cysts, measuring up to 2.4 cm. No new focal hepatic lesions. No biliary ductal dilation. GALLBLADDER: Cholecystectomy. SPLEEN: Mild splenomegaly. The spleen measures 12.5 cm in length in the intracranial colon dimension. PANCREAS: No focal masses or ductal dilatation. ADRENALS: No adrenal nodules KIDNEYS/URETERS: No hydronephrosis. No cystic or solid mass lesions. No stones. GI TRACT: Interval development of diffuse nodular wall thickening of the distal ascending colon, cecum and terminal ileum with surrounding fat stranding suggestive of acute colitis and an terminal ileum ileitis. Unchanged lipoma in the cecum. Appendectomy. Scattered diverticulosis of the sigmoid colon without diverticulitis. No bowel dilatation or obstruction. PELVIC ORGANS/BLADDER: Hysterectomy. LYMPH NODES: Few right lower quadrant subcentimeter lymph nodes, likely reactive. VESSELS: Unremarkable. PERITONEUM / RETROPERITONEUM: No free air or fluid. BONES: Severe degenerative changes from L1 to L4. Pars defect at L5-S1 with associated mild anterolisthesis of L5 over S1. SOFT TISSUES: Unremarkable. IMPRESSION: 1. Acute colitis and an terminal ileum ileitis. No perforation or abscess. 2. Colonic diverticulosis without diverticulitis. Signed by: Dr. Laurie George M.D. on 07/10/2018 3:59 PM
== END 2018-07-10 17:00 | disposition left against medical advice (07) ==
LOC: ER 12:12
DX: R10.11 Right upper quadrant pain (principal); R10.31 Right lower quadrant pain; R10.33 Periumbilical pain; K52.9 Noninfective gastroenteritis and colitis, unspecified; K50.00 Crohn's disease of small intestine without complications; I10 Essential (primary) hypertension; I25.10 Atherosclerotic heart disease of native coronary artery without angina pectoris; M79.7 Fibromyalgia; I25.2 Old myocardial infarction
CPT/HCPCS: 36415; 74176; 80053; 81001; 85025; 87086; 87186; 96372; 96374; 99284; J0500; J2405; J7030

== ENCOUNTER 2021-06-05 12:56 | Inpatient (IN) | payer MEDICARE ==
[~2021-06-05] VITALS: Ht 167.6 cm; Wt 83.9 kg
[2021-06-05] MEDS ORDERED: ONDANSETRON HCL INJ 2MG/ML 2ML 2 MG/ML VIAL IV PRN ×3 (13:15→17:00)
[2021-06-05] MEDS ORDERED: Morphine 4mg Syringe 4 MG/ML INJ IV PRN ×2 (13:15→15:00)
[2021-06-05] MEDS ORDERED: ASPIRIN 81 MG CHEW TAB PO ONE ×2 (13:15→15:00)
[2021-06-05 13:23] LABS: BASOPHILS # (AUTO) 0.1 (0.0-0.1); BASOPHILS % 0.6 % (0.0-1.0); EOSINOPHILS # (AUTO) 0.4 (0.0-0.4); EOSINOPHILS % 4.6 % (0.0-6.0); HEMATOCRIT 43.4 % (34.2-44.1); HEMOGLOBIN 14.1 g/dL (12.0-16.0); LYMPHOCYTES # (AUTO) 2.2 (1.0-3.2); LYMPHOCYTES % 27.8 % (18.0-39.1); MEAN CORPUSCULAR HEMOGLOBIN 28.8 pg (28-32); MEAN CORPUSCULAR HGB CONC 32.5 g/dL (31-35); MEAN CORPUSCULAR VOLUME 88.8 fL (81-99); MONOCYTES # (AUTO) 0.5 (0.2-0.8); MONOCYTES % 6.4 % (4.4-11.3); NEUTROPHILS # (AUTO) 4.8 (2.1-6.9); NEUTROPHILS % 60.3 % (38.7-80.0); PLATELET COUNT 252 x10e3/uL (140-360); RED BLOOD COUNT 4.89 x10e6/uL (3.6-5.1); RED CELL DISTRIBUTION WIDTH 15.7 % (11.7-14.4)
[2021-06-05 13:47] LABS: ALBUMIN 3.9 g/dL (3.5-5.0); ALBUMIN/GLOBULIN RATIO 1.1 (0.8-2.0); ANION GAP 14.4 mmol/L (8-16); CALCIUM 9.6 mg/dL (8.4-10.2); POTASSIUM 4.4 mmol/L (3.5-5.1)
[2021-06-05 14:03] LABS: CREATINE KINASE MB 2.2 ng/mL (0-5.0)
[2021-06-05] MEDS ORDERED: HEPARIN SOD (PORCINE) 1000 UNIT/ML 30ML ONE (15:12)
[2021-06-05] MEDS ORDERED: LIDOCAINE HCL 2% LOCAL 20 ML VIAL ONE (15:12)
[2021-06-05] MEDS ORDERED: NITROGLYCERIN/D5W 200 MCG/ML 250 ML ONE (15:13)
[2021-06-05] MEDS ORDERED: HEPARIN SOD/SOD CHLORIDE 2,000 ML ONE (15:13)
[2021-06-05] MEDS ORDERED: SODIUM CHLORIDE 0.9% 1000ML 1,000 ML ONE (15:13)
[2021-06-05] MEDS ORDERED: IOPAMIDOL 370 MG/ML 200 ML INFUS..BTL INJ ONE (15:13)
[2021-06-05] MEDS ORDERED: FENTANYL CITRATE/PF 100MCG/2 ML INJ ONE ×2 (15:14→16:11)
[2021-06-05] MEDS ORDERED: MIDAZOLAM HCL 2 MG/2 ML VIAL ONE ×2 (15:14→16:11)
[2021-06-05] MEDS ORDERED: VERAPAMIL HCL 2.5 MG/ML 2 ML VIAL ONE (15:18)
[2021-06-05] MEDS ORDERED: BIVALRIUDIN 250 MG/VIAL VIAL IV ONE (16:03)
[2021-06-05] MEDS ORDERED: SODIUM CHLORIDE 0.9% 50ML 50 ML ONE (16:04)
[2021-06-05] MEDS ORDERED: PRASUGREL 10 MG TAB ONE (16:19)
[2021-06-05] MEDS ORDERED: HYDRALAZINE HCL 20 MG/ML VIAL IV STA (17:25)
[2021-06-05] MEDS ORDERED: HYDRALAZINE HCL 20 MG/ML VIAL ONE (17:32)
[2021-06-05] MEDS ORDERED: Morphine 4mg Syringe 4 MG/ML INJ ONE (17:39)
[2021-06-05 18:30] VITALS: BP 143/83
[2021-06-05] MEDS ORDERED: SODIUM CHLORIDE 0.9% 1000ML 1,000 ML IV SCH (19:30)
[2021-06-05 20:00] VITALS: BP 131/78
[2021-06-05] MEDS: Morphine 2mg Syringe 2 MG/ML SYR IV PRN (20:55)
[2021-06-05] MEDS ORDERED: ATORVASTATIN 40 MG TAB PO SCH (21:00)
[2021-06-05] MEDS: HYDROCODONE/APAP 5MG-325MG TAB PO PRN (23:29)
[2021-06-06 00:20] VITALS: BP 132/73
[2021-06-06 00:58] LABS: CREATINE KINASE MB 1.7 ng/mL (0-5.0)
[2021-06-06] MEDS: Morphine 2mg Syringe 2 MG/ML SYR IV PRN ×2 (02:56→10:03)
[2021-06-06 03:53] VITALS: BP 132/73
[2021-06-06 05:25] VITALS: BP 124/69
[2021-06-06 06:11] LABS: BASOPHILS # (AUTO) 0.1 (0.0-0.1); BASOPHILS % 0.8 % (0.0-1.0); EOSINOPHILS # (AUTO) 0.3 (0.0-0.4); EOSINOPHILS % 2.5 % (0.0-6.0); HEMATOCRIT 42.2 % (34.2-44.1); HEMOGLOBIN 13.5 g/dL (12.0-16.0); LYMPHOCYTES % 19.4 % (18.0-39.1); MEAN CORPUSCULAR VOLUME 90.6 fL (81-99); MONOCYTES # (AUTO) 0.7 (0.2-0.8); NEUTROPHILS # (AUTO) 7.1 (2.1-6.9); NEUTROPHILS % 70.1 % (38.7-80.0); PLATELET COUNT 236 x10e3/uL (140-360); RED BLOOD COUNT 4.66 x10e6/uL (3.6-5.1); RED CELL DISTRIBUTION WIDTH 16.1 % (11.7-14.4)
[2021-06-06] MEDS: HYDROCODONE/APAP 5MG-325MG TAB PO PRN (06:30)
[2021-06-06 06:36] LABS: ALBUMIN 3.7 g/dL (3.5-5.0); ALBUMIN/GLOBULIN RATIO 1.1 (0.8-2.0); ANION GAP 10.3 mmol/L (8-16); CALCIUM 9.2 mg/dL (8.4-10.2); CREATININE, SERUM 1.02 mg/dL (0.57-1.11); POTASSIUM 4.3 mmol/L (3.5-5.1)
[2021-06-06 07:42] VITALS: BP 124/69
[2021-06-06] MEDS ORDERED: ONDANSETRON HCL INJ 2MG/ML 2ML 2 MG/ML VIAL IV PRN (07:45)
[2021-06-06 08:00] VITALS: BP 133/63
[2021-06-06] MEDS: METOPROLOL TARTRATE 25 MG TAB PO SCH ×2 (08:00→09:00)
[2021-06-06 08:02] VITALS: BP 133/63
[2021-06-06] MEDS ORDERED: PRASUGREL 10 MG TAB PO SCH (09:00)
[2021-06-06] MEDS ORDERED: ASPIRIN 81 MG ENTERIC COATED PO SCH (09:00)
[2021-06-06 10:15] LABS: CREATINE KINASE MB 1.6 ng/mL (0-5.0)
[2021-06-06] MEDS ORDERED: EFFIENT10 MG PO (11:29)
[2021-06-06] MEDS ORDERED: LIPITOR20 MG PO (11:30)
[2021-06-06] MEDS ORDERED: METOPROLOL SUCC25 MG PO (11:31)
[2021-06-06] MEDS ORDERED: PROMETHAZINE HC25 M1 PO (11:32)
== END 2021-06-06 12:05 | disposition home or self-care (01) | DRG 246 ==
LOC: ER 13:09 → ERHOLD 15:00 → UNDOADMIN 15:00 → CATH LAB 15:16 → MED/SURG3 18:50
PROC: 027034Z Dilation of Coronary Artery, One Artery with Drug-eluting Intraluminal Device, Percutaneous Approach (ICD-10-PCS; principal; 2021-06-05)
PROC: 4A023N7 Measurement of Cardiac Sampling and Pressure, Left Heart, Percutaneous Approach (ICD-10-PCS; 2021-06-05)
PROC: B2111ZZ Fluoroscopy of Multiple Coronary Arteries using Low Osmolar Contrast (ICD-10-PCS; 2021-06-05)
PROC: B2151ZZ Fluoroscopy of Left Heart using Low Osmolar Contrast (ICD-10-PCS; 2021-06-05)
DX: I25.110 Atherosclerotic heart disease of native coronary artery with unstable angina pectoris (principal); I50.33 Acute on chronic diastolic (congestive) heart failure; K50.90 Crohn's disease, unspecified, without complications; I11.0 Hypertensive heart disease with heart failure; J44.9 Chronic obstructive pulmonary disease, unspecified; Z95.5 Presence of coronary angioplasty implant and graft; G89.29 Other chronic pain; M06.9 Rheumatoid arthritis, unspecified; I25.2 Old myocardial infarction; F32.A Depression, unspecified; M19.90 Unspecified osteoarthritis, unspecified site; M79.7 Fibromyalgia; F17.200 Nicotine dependence, unspecified, uncomplicated; E78.00 Pure hypercholesterolemia, unspecified; Z20.822 Contact with and (suspected) exposure to COVID-19
CPT/HCPCS: 36415; 71045; 80053; 82550; 82553; 83880; 84484; 85025; 92928; 93005; 93306; 93458; 94799; 96360; 99152; 99153; 99284; C1766; C1874; C1887; C1894; J0360; J0583; J1644; J2001; J2250; J2270; J2405; J3010; J7030; Q9967; U0002

== ENCOUNTER 2022-05-23 10:47 | Emergency (ER) | payer MEDICARE ==
[~2022-05-23] VITALS: Ht 167.6 cm; Wt 95.3 kg
[~2022-05-23 10:47] MED LIST changes: +CIPROFLOXACIN500 MG PO; +DICYCLOMINE HCL20 MG PO; +EFFIENT10 MG PO; +HYDROCODON-ACE1 EA11 PO; +LIPITOR20 MG PO; +METOPROLOL SUCC25 MG PO; +ONDANSETRON ODT4 MG PO; +PREDNISONE20 MG PO; +PROMETHAZINE HC25 M1 PO
== END 2022-05-23 12:01 | disposition home or self-care (01) ==
LOC: FSED 10:53
DX: S20.212A Contusion of left front wall of thorax, initial encounter (principal); M06.9 Rheumatoid arthritis, unspecified; I11.0 Hypertensive heart disease with heart failure; I50.9 Heart failure, unspecified; I25.2 Old myocardial infarction; W01.0XXA Fall on same level from slipping, tripping and stumbling without subsequent striking against object, initial encounter
CPT/HCPCS: 71101; 99283

== ENCOUNTER 2023-04-11 14:27 | Inpatient (IN) | payer MEDICARE ==
[~2023-04-11] VITALS: Ht 167.6 cm; Wt 90.7 kg
[2023-04-11 15:09] LABS: BASOPHILS % 0.3 % (0.0-1.0); EOSINOPHILS # (AUTO) 0.3 (0.0-0.4); EOSINOPHILS % 2.9 % (0.0-6.0); HEMATOCRIT 36.8 % (34.2-44.1); HEMOGLOBIN 11.6 g/dL (12.0-16.0); LYMPHOCYTES # (AUTO) 1.8 (1.0-3.2); LYMPHOCYTES % 14.9 % (18.0-39.1); MEAN CORPUSCULAR HEMOGLOBIN 29.6 pg (28-32); MEAN CORPUSCULAR HGB CONC 31.5 g/dL (31-35); MEAN CORPUSCULAR VOLUME 93.9 fL (81-99); MONOCYTES # (AUTO) 0.8 (0.2-0.8); MONOCYTES % 7.2 % (4.4-11.3); NEUTROPHILS # (AUTO) 8.7 (2.1-6.9); NEUTROPHILS % 74.4 % (38.7-80.0); PLATELET COUNT 219 x10e3/uL (140-360); RED BLOOD COUNT 3.92 x10e6/uL (3.6-5.1); RED CELL DISTRIBUTION WIDTH 13.9 % (11.7-14.4); WHITE BLOOD COUNT 11.72 x10e3/uL (4.8-10.8)
[2023-04-11 15:18] LABS: BILIRUBIN,URINE SMALL (NEGATIVE); CLARITY,URINE HAZY (CLEAR); COLOR,URINE YELLOW (YELLOW); GLUCOSE, URINE NEGATIVE (NEGATIVE); KETONES,URINE TRACE (NEGATIVE); LEUKOCYTE ESTERASE ,URINE NEGATIVE (NEGATIVE); NITRITE,URINE NEGATIVE (NEGATIVE); PH,URINE 5.5 (5 - 7); PROTEIN,URINE DIPSTICK 1+ (NEGATIVE); URINE UROBILINOGEN 0.2 mg/dL (0.2 - 1)
[2023-04-11 15:20] LABS: BACTERIA,URINE FEW /HPF; EPITHELIAL CELLS,URINE FEW /LPF; WBC,URINE (MAN) 0-5 /HPF (0-5)
[2023-04-11 15:29] LABS: ALANINE AMINOTRANSFERASE 7 IU/L (0-55); ALBUMIN 3.2 g/dL (3.5-5.0); ALBUMIN/GLOBULIN RATIO 1.1 (0.8-2.0); ALKALINE PHOSPHATASE 82 IU/L (40-150); ANION GAP 13.9 mmol/L (8-16); BILIRUBIN,TOTAL 0.3 mg/dL (0.2-1.2); BLOOD UREA NITROGEN 26 mg/dL (7-26); BUN/CREATININE RATIO 21 (6-25); CALCIUM 8.4 mg/dL (8.4-10.2); CARBON DIOXIDE 23 mmol/L (22-29); CHLORIDE 99 mmol/L (98-107); CREATININE, SERUM 1.23 mg/dL (0.57-1.11); EST GLOMERULAR FILTRATION RATE 49 ML/MIN (>=60); GLUCOSE 119 mg/dL (74-118); POTASSIUM 3.9 mmol/L (3.5-5.1); SODIUM 132 mmol/L (136-145); TOTAL PROTEIN 6.2 g/dL (6.5-8.1)
[2023-04-11 15:33] LABS: LIPASE < 4 U/L (8-78)
[2023-04-11] MEDS: SODIUM CHLORIDE 0.9% 1000ML 1,000 ML IV ONE (15:40)
[2023-04-11] MEDS: ONDANSETRON HCL INJ 2MG/ML 2ML 2 MG/ML VIAL IV STA (15:42)
[2023-04-11] MEDS: Morphine 4mg INJECTION 4 MG/ML INJ IV ONE (15:42)
[2023-04-11] MEDS ORDERED: IOPAMIDOL 370 MG/ML 100 ML INFUS..BTL INJ ONE (15:46)
[2023-04-11] MEDS ORDERED: SODIUM CHLORIDE FLUSH 10 ML SYR INJ PRN (17:30)
[2023-04-11] MEDS: Morphine 4mg INJECTION 4 MG/ML INJ IV PRN (17:51)
[2023-04-11] MEDS: ONDANSETRON HCL INJ 2MG/ML 2ML 2 MG/ML VIAL IV PRN (17:52)
[2023-04-11] MEDS: LEVOFLOXACIN 750MG/D5W 150ML 150 ML IV SCH (17:59)
[2023-04-11 20:23] VITALS: BP 142/46; PULSE 72; RESP 18; TEMP 97.9; O2SAT 97
[2023-04-11 21:00] VITALS: BP 142/46; PULSE 72; RESP 18; TEMP 97.9; O2SAT 97
[2023-04-11] MEDS: METRONIDAZOLE 500MG/NS 100ML 100 ML IV SCH (22:05)
[2023-04-11] MEDS ORDERED: METRONIDAZOLE 500MG/NS 100ML 100 ML IV SCH (23:15)
[2023-04-12] VITALS (8 sets, daily range): BP systolic 108–141; BP diastolic 54–62; PULSE 70–89; RESP 12–18; TEMP 97.1–98.7; O2SAT 96–99
[2023-04-12] MEDS: METOCLOPRAMIDE HCL 10 MG/2ML VIAL IV SCH (00:56)
[2023-04-12 05:23] LABS: BASOPHILS % 0.3 % (0.0-1.0); EOSINOPHILS # (AUTO) 0.3 (0.0-0.4); EOSINOPHILS % 3.9 % (0.0-6.0); HEMATOCRIT 34.9 % (34.2-44.1); HEMOGLOBIN 10.9 g/dL (12.0-16.0); LYMPHOCYTES # (AUTO) 1.5 (1.0-3.2); LYMPHOCYTES % 21.2 % (18.0-39.1); MEAN CORPUSCULAR HEMOGLOBIN 29.6 pg (28-32); MEAN CORPUSCULAR HGB CONC 31.2 g/dL (31-35); MEAN CORPUSCULAR VOLUME 94.8 fL (81-99); MONOCYTES # (AUTO) 0.5 (0.2-0.8); MONOCYTES % 6.6 % (4.4-11.3); NEUTROPHILS # (AUTO) 4.9 (2.1-6.9); NEUTROPHILS % 67.7 % (38.7-80.0); PLATELET COUNT 188 x10e3/uL (140-360); RED BLOOD COUNT 3.68 x10e6/uL (3.6-5.1); WHITE BLOOD COUNT 7.27 x10e3/uL (4.8-10.8)
[2023-04-12 05:49] LABS: ALBUMIN 2.8 g/dL (3.5-5.0); ANION GAP 10.3 mmol/L (8-16); BILIRUBIN,TOTAL 0.2 mg/dL (0.2-1.2); CALCIUM 8.2 mg/dL (8.4-10.2); CREATININE, SERUM 0.84 mg/dL (0.57-1.11); POTASSIUM 4.3 mmol/L (3.5-5.1); TOTAL PROTEIN 5.6 g/dL (6.5-8.1)
[2023-04-12] MEDS: METRONIDAZOLE 500MG/NS 100ML 100 ML IV SCH (05:49)
[2023-04-12] MEDS: DICYCLOMINE HCL 20 MG TAB PO SCH (09:31)
[2023-04-12] MEDS ORDERED: ACETAMINOPHEN 325 MG TAB PO PRN (09:45)
[2023-04-12] MEDS ORDERED: METOPROLOL TARTRATE INJ 1 MG/ML VIAL IV PRN (09:45)
[2023-04-12 10:18] LABS: PHOSPHORUS 2.7 MG/DL (2.3-4.7)
[2023-04-12] MEDS ORDERED: RIZATRIPTAN BENZOATE 10 MG PO PRN (10:30)
[2023-04-12 11:34] LABS: WBC,FECAL (FECAL LACTOFERRIN) POSITIVE (NEGATIVE)
[2023-04-12] MEDS: GABAPENTIN 300 MG CAP PO SCH (14:58)
[2023-04-12] MEDS: SERTRALINE HCL 100 MG TAB PO SCH (16:38)
[2023-04-12] MEDS: BUSPIRONE HCL 10 MG TABLET PO SCH (16:43)
[2023-04-12] MEDS: SODIUM CHLORIDE 0.9% 250ML 250 ML ONE (19:47)
[2023-04-12 21:20] LABS: % IRON SATURATION 5 % (15-50); IRON 16 ug/dL (50-170); TOTAL IRON BINDING CAPACITY 318 ug/dL (261-478); TRANSFERRIN 227 mg/dL (180-382)
[2023-04-12] MEDS: OXYCODONE HCL IR 5 MG TAB PO PRN (22:53)
[2023-04-13] VITALS (9 sets, daily range): BP systolic 110–152; BP diastolic 39–74; PULSE 66–87; RESP 16–21; TEMP 97.6–99.2; O2SAT 93–99
[2023-04-13 05:31] LABS: BASOPHILS % 0.5 % (0.0-1.0); EOSINOPHILS # (AUTO) 0.3 (0.0-0.4); EOSINOPHILS % 3.4 % (0.0-6.0); HEMATOCRIT 34.8 % (34.2-44.1); HEMOGLOBIN 10.6 g/dL (12.0-16.0); LYMPHOCYTES # (AUTO) 1.7 (1.0-3.2); LYMPHOCYTES % 23.6 % (18.0-39.1); MEAN CORPUSCULAR HEMOGLOBIN 29.4 pg (28-32); MEAN CORPUSCULAR HGB CONC 30.5 g/dL (31-35); MEAN CORPUSCULAR VOLUME 96.7 fL (81-99); MONOCYTES # (AUTO) 0.5 (0.2-0.8); MONOCYTES % 6.2 % (4.4-11.3); NEUTROPHILS # (AUTO) 4.8 (2.1-6.9); PLATELET COUNT 215 x10e3/uL (140-360); RED CELL DISTRIBUTION WIDTH 13.8 % (11.7-14.4); WHITE BLOOD COUNT 7.28 x10e3/uL (4.8-10.8)
[2023-04-13 06:08] LABS: ANION GAP 10.6 mmol/L (8-16); CALCIUM 8.6 mg/dL (8.4-10.2); CREATININE, SERUM 0.81 mg/dL (0.57-1.11); POTASSIUM 4.6 mmol/L (3.5-5.1)
[2023-04-13] MEDS: Leflunomide 20 MG PO SCH (09:00)
[2023-04-13] MEDS: IRON SUCROSE 100 MG in SODIUM CHLORIDE 0.9% 100 ML IV SCH (09:19)
[2023-04-13] MEDS: METOPROLOL SUCCINATE 25 MG TAB XL PO SCH (09:19)
[2023-04-13] MEDS: CYANOCOBALAMIN INJ 1,000 MCG/ML VIAL IM ONE (21:39)
[2023-04-13] MEDS: MAGNESIUM HYDROXIDE 30 ML UDC PO ONE (23:15)
[2023-04-14] VITALS (8 sets, daily range): BP systolic 119–147; BP diastolic 51–76; PULSE 55–83; RESP 17–21; TEMP 97.1–98.7; O2SAT 91–98
[2023-04-14] MEDS ORDERED: SODIUM CHLORIDE 0.9% 100 ML ONE (08:21)
[2023-04-14] MEDS: CYANOCOBALAMIN INJ 1,000 MCG/ML VIAL IM SCH (08:41)
[2023-04-15] VITALS (10 sets, daily range): BP systolic 105–156; BP diastolic 53–75; PULSE 63–80; RESP 15–18; TEMP 97.1–98.3; O2SAT 93–98
[2023-04-15 07:01] LABS: BASOPHILS % 0.5 % (0.0-1.0); EOSINOPHILS # (AUTO) 0.4 (0.0-0.4); EOSINOPHILS % 5.9 % (0.0-6.0); HEMATOCRIT 35.5 % (34.2-44.1); HEMOGLOBIN 11.2 g/dL (12.0-16.0); LYMPHOCYTES # (AUTO) 1.7 (1.0-3.2); LYMPHOCYTES % 27.5 % (18.0-39.1); MEAN CORPUSCULAR HEMOGLOBIN 29.2 pg (28-32); MEAN CORPUSCULAR HGB CONC 31.5 g/dL (31-35); MEAN CORPUSCULAR VOLUME 92.7 fL (81-99); MONOCYTES # (AUTO) 0.5 (0.2-0.8); MONOCYTES % 7.9 % (4.4-11.3); NEUTROPHILS # (AUTO) 3.5 (2.1-6.9); NEUTROPHILS % 57.5 % (38.7-80.0); PLATELET COUNT 268 x10e3/uL (140-360); RED BLOOD COUNT 3.83 x10e6/uL (3.6-5.1); RED CELL DISTRIBUTION WIDTH 13.5 % (11.7-14.4)
[2023-04-15 07:47] LABS: ALBUMIN 2.9 g/dL (3.5-5.0); ALKALINE PHOSPHATASE 64 IU/L (40-150); ANION GAP 10.3 mmol/L (8-16); BILIRUBIN,TOTAL 0.3 mg/dL (0.2-1.2); BLOOD UREA NITROGEN 7 mg/dL (7-26); BUN/CREATININE RATIO 9 (6-25); CALCIUM 8.7 mg/dL (8.4-10.2); CARBON DIOXIDE 30 mmol/L (22-29); CHLORIDE 100 mmol/L (98-107); CREATININE, SERUM 0.78 mg/dL (0.57-1.11); EST GLOMERULAR FILTRATION RATE 85 ML/MIN (>=60); GLUCOSE 95 mg/dL (74-118); POTASSIUM 4.3 mmol/L (3.5-5.1); SODIUM 136 mmol/L (136-145); TOTAL PROTEIN 5.7 g/dL (6.5-8.1)
[2023-04-15 07:52] LABS: ALANINE AMINOTRANSFERASE < 6 IU/L (0-55)
[2023-04-15 08:24] LABS: MAGNESIUM 1.8 MG/DL (1.3-2.1); PHOSPHORUS 3.2 MG/DL (2.3-4.7)
[2023-04-15] MEDS: CYANOCOBALAMIN INJ 1,000 MCG/ML VIAL IM SCH (20:51)
[2023-04-15] MEDS: ATORVASTATIN 40 MG TAB PO SCH (20:51)
[2023-04-16] VITALS (9 sets, daily range): BP systolic 128–146; BP diastolic 65–72; PULSE 70–86; RESP 16–19; TEMP 97.8–98.7; O2SAT 95–99
[2023-04-16 05:56] LABS: BASOPHILS % 0.4 % (0.0-1.0); EOSINOPHILS # (AUTO) 0.3 (0.0-0.4); EOSINOPHILS % 4.9 % (0.0-6.0); HEMATOCRIT 35.3 % (34.2-44.1); HEMOGLOBIN 11.6 g/dL (12.0-16.0); LYMPHOCYTES # (AUTO) 1.8 (1.0-3.2); MEAN CORPUSCULAR HEMOGLOBIN 30.6 pg (28-32); MEAN CORPUSCULAR HGB CONC 32.9 g/dL (31-35); MEAN CORPUSCULAR VOLUME 93.1 fL (81-99); MONOCYTES # (AUTO) 0.6 (0.2-0.8); MONOCYTES % 8.2 % (4.4-11.3); NEUTROPHILS % 59.2 % (38.7-80.0); PLATELET COUNT 292 x10e3/uL (140-360); RED BLOOD COUNT 3.79 x10e6/uL (3.6-5.1); RED CELL DISTRIBUTION WIDTH 13.3 % (11.7-14.4); WHITE BLOOD COUNT 6.73 x10e3/uL (4.8-10.8)
[2023-04-16 06:16] LABS: ALBUMIN 2.8 g/dL (3.5-5.0); ALBUMIN/GLOBULIN RATIO 1.1 (0.8-2.0); ALKALINE PHOSPHATASE 59 IU/L (40-150); BILIRUBIN,TOTAL 0.3 mg/dL (0.2-1.2); BLOOD UREA NITROGEN 11 mg/dL (7-26); BUN/CREATININE RATIO 13 (6-25); CALCIUM 8.4 mg/dL (8.4-10.2); CARBON DIOXIDE 30 mmol/L (22-29); CHLORIDE 101 mmol/L (98-107); CHOL/HDL RATIO 3.9 (3.0-3.6); CHOLESTEROL 129 MD/DL (0-199); CREATININE, SERUM 0.87 mg/dL (0.57-1.11); EST GLOMERULAR FILTRATION RATE 75 ML/MIN (>=60); GLUCOSE 98 mg/dL (74-118); HDL CHOLESTEROL 33 MG/DL (40-60); LDL CHOLESTEROL 77 MG/DL (60-130); SODIUM 139 mmol/L (136-145); TOTAL PROTEIN 5.4 g/dL (6.5-8.1); TRIGLYCERIDES 93 MG/DL (0-149)
[2023-04-16 06:23] LABS: ALANINE AMINOTRANSFERASE < 6 IU/L (0-55)
[2023-04-16 06:38] LABS: THYROID STIMULATING HORMONE 3.367 uIU/mL (0.350-4.940)
[2023-04-16] MEDS ORDERED: NALOXONE HCL INJ 0.4 MG/ML AMP IV PRN (09:15)
[2023-04-16] MEDS ORDERED: ACETAMIN/BUTALBITAL/CAFFEINE TAB PO PRN (09:15)
[2023-04-16] MEDS: SODIUM CHLORIDE 0.9% 250ML 250 ML ONE (10:01)
[2023-04-16] MEDS: ACETAMIN/BUTALBITAL/CAFFEINE TAB PO ONE (10:10)
[2023-04-16] MEDS: MAGNESIUM HYDROXIDE 30 ML UDC PO ONE (22:11)
[2023-04-17] VITALS (10 sets, daily range): BP systolic 100–124; BP diastolic 45–87; PULSE 63–87; RESP 16–19; TEMP 97.6–98.6; O2SAT 92–100
[2023-04-17] MEDS: MAGNESIUM HYDROXIDE 30 ML UDC PO ONE (23:54)
[2023-04-18] VITALS (9 sets, daily range): BP systolic 105–149; BP diastolic 37–70; PULSE 64–94; RESP 17–20; TEMP 97.2–98.4; O2SAT 93–100
[2023-04-18 07:38] LABS: ANION GAP 13.4 mmol/L (8-16); CALCIUM 8.7 mg/dL (8.4-10.2); CREATININE, SERUM 0.99 mg/dL (0.57-1.11); POTASSIUM 4.4 mmol/L (3.5-5.1)
[2023-04-18] MEDS: LACTULOSE SYRUP 20 GM/30 ML UDC PO ONE (16:18)
[2023-04-18] MEDS: BISACODYL 5 MG TAB EC PO ONE (22:13)
[2023-04-18] MEDS ORDERED: BISACODYL 5 MG TAB EC PO ONE (23:00)
[2023-04-19] MEDS: BISACODYL 5 MG TAB EC PO ONE (02:42)
[2023-04-19] MEDS: IRON-VITAMIN-MINERAL CAPSULE PO SCH (08:26)
[2023-04-19 08:29] VITALS: BP 121/61; PULSE 81; RESP 20; TEMP 99.1; O2SAT 100
[2023-04-19] MEDS: OXYCODONE HCL IR 5 MG TAB PO PRN (11:49)
[2023-04-19 13:21] VITALS: PULSE 75; RESP 18; O2SAT 93
[2023-04-19 16:19] VITALS: BP 140/83; PULSE 70; RESP 18; TEMP 98.2; O2SAT 100
[2023-04-19] MEDS: Morphine 4mg INJECTION 4 MG/ML INJ IV ONE (17:08)
[2023-04-19 20:00] VITALS: BP 145/97; PULSE 75; RESP 18; TEMP 98.1; O2SAT 99
[2023-04-19 20:05] VITALS: BP 140/83; PULSE 70; RESP 18; TEMP 98.2; O2SAT 100
[2023-04-19 21:30] VITALS: PULSE 74; RESP 18; O2SAT 94
[2023-04-20] VITALS: BP 119/52; PULSE 71; RESP 18; TEMP 98.2; O2SAT 98
[2023-04-20 04:00] VITALS: BP 120/52; PULSE 70; RESP 18; TEMP 98.6; O2SAT 98
[2023-04-20 08:00] VITALS: BP 152/76; PULSE 73; RESP 19; TEMP 98.2; O2SAT 96
[2023-04-20 08:38] VITALS: PULSE 75; RESP 16; O2SAT 97
[2023-04-20 12:00] VITALS: BP 141/73; PULSE 72; RESP 19; TEMP 98; O2SAT 98
[2023-04-20] MEDS ORDERED: FEROCON CAPSUL1 EACH PO (12:40)
[2023-04-20] MEDS ORDERED: ACETAMINOPHEN325 M1 PO (12:40)
[2023-04-20] MEDS ORDERED: LEVOFLOXACIN250 MG PO (12:40)
[2023-04-20] MEDS ORDERED: METRONIDAZOLE500 MG PO (12:40)
[2023-04-20] MEDS ORDERED: ATORVASTATIN CA40 MG PO (12:40)
[2023-04-20] MEDS ORDERED: ONDANSETRON ODT4 MG PO (12:40)
[2023-04-20] MEDS ORDERED: DICYCLOMINE HCL20 MG PO (12:40)
[2023-04-20] MEDS ORDERED: VITAMIN B-121000 MCG PO (12:40)
[2023-04-20] MEDS ORDERED: REGLAN10 MG PO (12:40)
[2023-04-20] MEDS ORDERED: ONDANSETRON HCL 4 MG ORAL DISINTEGRATING TAB PO PRN (13:15)
[2023-04-20] MEDS ORDERED: METRONIDAZOLE 500 MG TAB PO SCH (16:00)
== END 2023-04-20 14:27 | disposition home or self-care (01) | DRG 392 ==
LOC: ER 14:45 → ERHOLD 17:20 → MED/SURG 20:26 → OBSVTOIN 04-13 06:34
PROVIDERS: ADMIT Internal Medicine; ATTEND Internal Medicine
DX: K52.89 Other specified noninfective gastroenteritis and colitis (principal); E87.1 Hypo-osmolality and hyponatremia; I50.32 Chronic diastolic (congestive) heart failure; K50.90 Crohn's disease, unspecified, without complications; D72.829 Elevated white blood cell count, unspecified; E86.0 Dehydration; Z66 Do not resuscitate; I25.10 Atherosclerotic heart disease of native coronary artery without angina pectoris; D50.9 Iron deficiency anemia, unspecified; E53.8 Deficiency of other specified B group vitamins; I11.0 Hypertensive heart disease with heart failure; M06.9 Rheumatoid arthritis, unspecified; M79.7 Fibromyalgia; M54.9 Dorsalgia, unspecified; R53.1 Weakness; R53.81 Other malaise; E78.00 Pure hypercholesterolemia, unspecified; G43.909 Migraine, unspecified, not intractable, without status migrainosus; K59.09 Other constipation; E66.9 Obesity, unspecified; Z68.32 Body mass index [BMI] 32.0-32.9, adult; F41.9 Anxiety disorder, unspecified; Z95.5 Presence of coronary angioplasty implant and graft; I25.2 Old myocardial infarction; Z87.891 Personal history of nicotine dependence; Z20.822 Contact with and (suspected) exposure to COVID-19
CPT/HCPCS: 36415; 71045; 74018; 74177; 80048; 80053; 80061; 81001; 82607; 82746; 83540; 83630; 83690; 83735; 83993; 84100; 84443; 84466; 85025; 85045; 87045; 87177; 87324; 87400; 87449; 93005; 93306; 94799; 99252; 99284; G0378; J1756; J2270; J2405; J2765; J3420; J7030; J7050; Q9967; U0002